=== PATIENT | female | born 1940 | race Caucasian/White ===

== ENCOUNTER → 2017-11-20 | Outpatient (CLI) | payer MEDICARE ==
[~2017-11-20] MED LIST: ASP81TEC PO; ASPI-999 PO; CA C1TAB26 PO; CALC-656 PO; CHOL10003 PO; CHOL100048 PO; CITA10TA70 PO; ESCI20TA PO; HYDR-91 PO; IBUP-1773 PO; IRON1TAB89 PO; LOSA1TAB23 PO; MULT-608 PO; MULT1TAB69 PO; NITR-33 PO; OMG1KC PO; PHEN200T16 PO; SMV20T PO; ZOLP5TAB PO
[2017-11-20 16:36] LABS: BASOPHILS # (AUTO) 0.1 10^3/uL (0.0-0.1); BASOPHILS % (AUTO) 1 % (0-10); EOSINOPHILS # (AUTO) 0.2 10^3/uL (0.0-0.3); EOSINOPHILS % (AUTO) 3 % (0-10); HEMATOCRIT 39 % (35-52); HEMOGLOBIN 13.3 G/DL (11.5-16.0); LYMPHOCYTES % (AUTO) 32 % (12-44); MEAN CORPUSCULAR HEMOGLOBIN 30 PG (25-34); MEAN CORPUSCULAR HGB CONC 35 G/DL (32-36); MEAN CORPUSCULAR VOLUME 87 FL (80-99); MONOCYTES # (AUTO) 0.8 X 10^3 (0.0-1.0); MONOCYTES % (AUTO) 12 % (0-12); NEUTROPHILS # (AUTO) 3.3 X 10^3 (1.8-7.8); NEUTROPHILS % (AUTO) 52 % (42-75); PLATELET COUNT 259 10^3/uL (130-400); RED BLOOD COUNT 4.42 10^6/uL (4.35-5.85); RED CELL DISTRIBUTION WIDTH 12.8 % (10.0-14.5); WHITE BLOOD COUNT 6.3 10^3/uL (4.3-11.0)
[2017-11-20 16:50] LABS: ALBUMIN 4.4 GM/DL (3.2-4.5); BILIRUBIN,TOTAL 0.5 MG/DL (0.1-1.0); CALCIUM 9.7 MG/DL (8.5-10.1); CREATININE SERUM 1.05 MG/DL (0.60-1.30); POTASSIUM 3.7 MMOL/L (3.6-5.0); TOTAL PROTEIN 6.9 GM/DL (6.4-8.2)
== END ==
LOC: LABNPT 16:28
PROVIDERS: ATTEND Obstetrics & Gynecology Gynecologic Oncology
DX: Z01.812 Encounter for preprocedural laboratory examination (principal); C54.1 Malignant neoplasm of endometrium; R10.2 Pelvic and perineal pain
CPT/HCPCS: 80053; 85025; 86304

== ENCOUNTER → 2018-11-28 | Outpatient (CLI) | payer MEDICARE ==
--- NOTE | 2018-11-28 17:35 | Diagnostic Imaging Report ---
INDICATION: Bilateral knee pain. TIME OF EXAM: 2:46 p.m. Multiple views of bilateral knees were obtained. FINDINGS: Left knee demonstrates postop changes of total knee arthroplasty. Prosthetic elements appear to be in good position without fracture or loosening. Right knee demonstrates severe medial compartmental degenerative change with joint space narrowing and marginal spurring. No acute fracture, dislocation, or effusion is seen. IMPRESSION: Satisfactory postop changes on the left. There are severe medial compartmental degenerative changes on the right. Dictated by: Dictated on workstation # [id number]
== END ==
LOC: RAD FS 14:38
PROVIDERS: ATTEND Nurse Practitioner
DX: M17.11 Unilateral primary osteoarthritis, right knee (principal); M25.562 Pain in left knee; Z96.652 Presence of left artificial knee joint

== ENCOUNTER → 2018-12-07 | Outpatient (CLI) | payer MEDICARE ==
--- NOTE | 2018-12-07 19:13 | Diagnostic Imaging Report ---
PROCEDURE: CT cervical spine without contrast. TECHNIQUE: Multiple contiguous axial images were obtained through the cervical spine without the use of intravenous contrast. Sagittal and coronal reformations were then performed. Auto Exposure Controls were utilized during the CT exam to meet ALARA standards for radiation dose reduction. DATE: December 07, 2018. INDICATION: 78-year-old female, cervical radiculopathy extending to the left shoulder and arm. History of fall two months ago. COMPARISON: None available. FINDINGS: There is straightening of the normal cervical lordosis. There is no identified facet joint subluxation or dislocation. There are multilevel advanced facet degenerative changes of the cervical spine. There is partial ankylosis across the bilateral C2-C3 facet articulations. There is no asymmetric widening of the cervical disc spaces. There is no prominent prevertebral soft tissue swelling. There is mild arthritis at the C1-C2 articulation. There are multilevel disc degenerative changes of the cervical spine. Disc height loss is most notable at C6-C7 with severe disc height loss at this level. There is a posterior disc osteophyte complex. There is also a posterior disc osteophyte complex at C4-C5 and C5-C6. CT is limited for assessment of disc pathology as well as additional non-bony causes of pathology within the spinal canal. There is no identified acute fracture of the cervical spine. The visualized portions of the lung apices are clear. There are atherosclerotic calcifications. There is heterogeneous attenuation of the thyroid with bilateral thyroid nodules measuring up to approximately 2.7 cm in size on the right and 2.5 cm on the left. Dedicated thyroid ultrasound is recommended for further assessment. IMPRESSION: 1. Multilevel advanced disc and facet degenerative changes of the cervical spine. CT is limited for assessment of disc pathology and non-bony causes of foraminal and spinal stenosis. 2. No identified acute fracture of the cervical spine. 3. Bilateral thyroid nodules. Dedicated thyroid ultrasound is recommended for further assessment. Dictated by: Dictated on workstation # [id number]
== END ==
LOC: RAD 14:23
PROVIDERS: ATTEND Nurse Practitioner Family
DX: Z01.818 Encounter for other preprocedural examination (principal); Z01.89 Encounter for other specified special examinations; M47.22 Other spondylosis with radiculopathy, cervical region; E04.2 Nontoxic multinodular goiter; K63.5 Polyp of colon; M19.91 Primary osteoarthritis, unspecified site; C55 Malignant neoplasm of uterus, part unspecified; G47.00 Insomnia, unspecified; Z91.81 History of falling
CPT/HCPCS: 72125

== ENCOUNTER → 2022-02-11 | Outpatient (CLI) | payer MEDICARE ==
[~2022-02-11] MED LIST changes: +MULT-567 PO; -MULT1TAB69 PO
--- NOTE | 2022-02-11 15:46 | Diagnostic Imaging Report ---
INDICATION: Right shoulder pain with adhesions and capsulitis. FINDINGS: 3 views. There is [id number] appearance of the glenohumeral joint. There is a sclerotic appearance to the humeral head and glenoid. Subcortical cystic changes. There is considerable hypertrophic bony changes along the inferior aspect of the humeral head. No definite cortical fractures demonstrated. AC joints in good alignment with rather large osteophyte extending superiorly. 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 Dictated by: Dictated on workstation # [id number]
== END ==
LOC: RAD FS 11:31
PROVIDERS: ATTEND Family Medicine
DX: M19.011 Primary osteoarthritis, right shoulder (principal)
CPT/HCPCS: 73030

== ENCOUNTER 2022-03-06 17:19 | Emergency (ER) | payer MEDICARE ==
[~2022-03-06] VITALS: Ht 157 cm; Wt 62.0 kg
--- NOTE | 2022-03-06 17:42 | ED Head Injury ---
General Chief Complaint: Head/Cervical Problems Stated Complaint: FELL,HIT HEAD Nursing Triage Note: PT REPORTS SHE SLIPPED AND FELL BACKWARDS IN THE SHOWER YESTERDAY AND HIT THE BACK OF HER HEAD. NO LOC. THIS AFTERNOON SHE STARTED FEELING DIZZY. Source: patient, family Exam Limitations: no limitations History of Present Illness Date Seen by Provider: Mar 06, 2022 Time Seen by Provider: 17:22 Initial Comments 82-year-old male with past medical history of hypertension coming in after she slipped in the shower yesterday and at the back of her head. Did not pass out, remembers all of the events. Was able to get up on the side of the shower, but needed help afterwards. Has been unsteady on her feet today and feels more dizzy. No real headache, vision changes, weakness, numbness, chest pain, shortness of breath, abdominal pain, nausea, vomiting, diarrhea, or any other concerns. She does not take any blood thinners. Allergies and Home Medications Allergies Coded Allergies: Sulfa (Sulfonamide Antibiotics) (Unverified Allergy, RASH, 08/12/10) Patient Home Medication List Home Medication List Reviewed: Yes Aspirin (Aspirin) 81 Mg Tab.chew, 81 MG PO DAILY, (Reported) Entered as Reported by: HARPREET BRUCE on 10/04/17 1116 Cholecalciferol (Vitamin D3) (Vitamin D) 1,000 Unit Capsule, 1,000 UNIT PO BID, (Reported) Entered as Reported by: HARPREET BRUCE on 10/04/17 111 Escitalopram Oxalate (Lexapro) 20 Mg Tablet, 20 MG PO HS, (Reported) Entered as Reported by: HARPREET BRUCE on 10/04/17 1116 Ibuprofen (Ibuprofen) 600 Mg Tablet, 600 MG PO Q6H Prescribed by: GERALDINE DIAL on 10/07/17 1022 Iron,Carbonyl/Ascorbic Acid (Iron 100-Vitamin C Tablet) 1 Each Tablet, 1 EACH PO DAILY, (Reported) Entered as Reported by: HARPREET BRUCE on 10/04/17 111 Losartan/Hydrochlorothiazide (Losartan-Hctz 100-25 mg Tab) 1 Each Tablet, 0.5 TAB PO DAILY, (Reported) Entered as Reported by: HARPREET BRUCE on 10/04/17 111 Multivitamin (Multivitamins) 1 Each Tablet, 1 EACH PO DAILY PRN, (Reported) Entered as Reported by: HARPREET BRUCE on 10/04/17 111 [place] 3 Polyunsat Fatty Acids (Fish Oil 1,000 mg Capsule) 1,000 Mg Cap, 1,000 MG PO BID, (Reported) Entered as Reported by: HARPREET BRUCE on 10/04/17 111 Zolpidem Tartrate (Ambien) 5 Mg Tablet, 5 MG PO HS, (Reported) Entered as Reported by: HARPREET BRUCE on 10/04/17 111 Review of Systems Review of Systems Constitutional: No fever Eyes: No Symptoms Reported Ears, Nose, Mouth, Throat: no symptoms reported Respiratory: no symptoms reported Cardiovascular: no symptoms reported Gastrointestinal: no symptoms reported Genitourinary: no symptoms reported Musculoskeletal: no symptoms reported Skin: no symptoms reported Psychiatric/Neurological: See HPI Endocrine: No Symptoms Reported Hematologic/Lymphatic: No Symptoms Reported All Other Systems Reviewed Negative Unless Noted: Yes Past Lrfgqbz-Ggzmyu-Ffjpwi Hx Patient Social History Tobacco Use?: No Use of E-Cig and/or Vaping dev: No Substance use?: No Alcohol Use?: No Pt feels they are or have been: No Immunizations Up To Date First/Initial COVID19 Vaccinat: 2020 Second COVID19 Vaccination Jayme: 2020 COVID19 Vaccine Recycling Assistant: CHRISTIANO Seasonal Allergies Seasonal Allergies: No Past Medical History Surgery/Hospitalization HX: HYSTERECTOMY OVARIAN CA KNEE Surgeries: Yes Hypertension Neuropathy Reproductive Disorders: No Sexually Transmitted Disease: No Kidney Stones Chronic Constipation, Chronic Diarrhea, Polyps Arthritis What Type of Treatment Did You: Surgical Intervention Physical Exam Vital Signs Vital Signs - First Documented 03/06/22 17:25 Temp 36.2 Pulse 71 Resp 16 B/P (MAP) 147/64 (91) Pulse Ox 95 O2 Delivery Room Air Capillary Refill : Less Than 3 Seconds Height, Weight, BMI Height: 5'1.00" Weight: 147lbs. 0.0oz. 66.994815yb; 25.00 BMI Method: General Appearance: WD/WN, no apparent distress HEENT: PERRL/EOMI, normal ENT inspection, TMs normal, pharynx normal Neck: non-tender, full range of motion, supple, normal inspection Cardiovascular: regular rate, rhythm, no edema, no murmur Respiratory: chest non-tender, lungs clear, normal breath sounds, no respiratory distress, no accessory muscle use Gastrointestinal: normal bowel sounds, non tender, soft; No distended, No guarding, No rebound Back: normal inspection, no CVA tenderness, no vertebral tenderness Extremities: normal range of motion, non-tender, normal inspection, no pedal edema, no calf tenderness, normal capillary refill Psychiatric: alert, oriented x 3 Crainal Nerves: normal hearing, normal speech, PERRL Coordination/Gait: normal finger to nose, normal gait Motor/Sensory: no motor deficit, no sensory deficit, no pronator drift Skin: normal color, warm/dry Lymphatic: no adenopathy Wrens Coma Score Best Eye Response: (4) Open Spontaneously Best Verbal Response: (5) Oriented Best Motor Response: (6) Obeys Commands Progress/Results/Core Measures Results/Orders Lab Results Laboratory Tests Test 03/06/22 18:05 Range/Units Urine Color YELLOW Urine Clarity SLIGHTLY CLOUDY Urine pH 7.0 5-9 Urine Specific Greer 1.020 1.016-1.022 Urine Protein NEGATIVE NEGATIVE Urine Glucose (UA) NEGATIVE NEGATIVE Urine Ketones NEGATIVE NEGATIVE Urine Nitrite NEGATIVE NEGATIVE Urine Bilirubin NEGATIVE NEGATIVE Urine Urobilinogen 0.2 < = 1.0 MG/DL Urine Leukocyte Esterase 1+ H NEGATIVE Urine RBC (Auto) NEGATIVE NEGATIVE Urine RBC NONE /HPF Urine WBC >100 H /HPF Urine Squamous Epithelial Cells 2-5 /HPF Urine Crystals NONE /LPF Urine Bacteria MODERATE H /HPF Urine Casts PRESENT /LPF Urine Hyaline Casts 2-5 H /LPF Urine Mucus NEGATIVE /LPF Urine Culture Indicated YES My Orders Orders - KATARINA OVALLES MD Ct Head/Cervical Spine Wo (03/06/22 17:39) Ua Culture If Indicated (03/06/22 17:53) Urine Culture (03/06/22 18:05) Vital Signs/I&O 03/06/22 03/06/22 17:25 18:19 Temp 36.2 36.2 Pulse 71 62 Resp 16 16 B/P (MAP) 147/64 (91) 116/58 Pulse Ox 95 95 O2 Delivery Room Air Room Air Blood Pressure Mean: 91 Progress Progress Note : Progress Note 82-year-old female with above history coming in after mechanical fall slipping in the shower and hitting the back of her head. ABCs were intact and vitals were stable on presentation with a GCS of 15. Physical exam reassuring including a comprehensive neuro exam which is normal. CT head and cervical spine ordered and show no acute abnormalities. She did have a multinodular goiter which I discussed with the patient and is known and followed by her PCP. She does have some burning with urination and her UA was consistent with infection. Given an IM shot of ceftriaxone and will send her prescription home. I believe she stable for discharge with outpatient follow-up. She was sent home with strict return precautions Diagnostic Imaging Diagonstic Imaging: CT (head) Comments NAME: ALTHEA DUBON [facility] REC#: [id number] PT STATUS: REG ER : 1940 PHYSICIAN: KATARINA OVALLES MD ADMIT DATE: 03/06/22/ER FS Draft Date of Exam:03/06/22 CT HEAD/CERVICAL SPINE WO PROCEDURE: CT head and CT cervical spine without contrast. TECHNIQUE: Multiple contiguous axial images were obtained through the brain and cervical spine without the use of intravenous contrast. Sagittal and coronal reformations through the cervical spine were then performed. Auto Exposure Controls were utilized during the CT exam to meet ALARA standards for radiation dose reduction. INDICATION: Fall. Head and neck pain. Dizziness. COMPARISON: 12/07/2018. FINDINGS: CT HEAD: No large acute territorial ischemia, mass or hemorrhage. No midline shift or mass effect. Decreased attenuation is seen in the periventricular and subcortical white matter. The ventricles and cortical sulci are prominent. The basilar cisterns are patent and unremarkable. The calvarium is intact. Retained secretions are seen in the bilateral sphenoid sinuses. The mastoid air cells are clear. CT CERVICAL SPINE: No acute fracture or dislocation is seen in the cervical spine. No focal osseous lesion. Vertebral body heights are well-maintained. The craniocervical junction is well-maintained. Moderate degenerative changes are seen in the cervical spine with disc osteophyte complexes and uncovertebral arthropathy. Enlarged nodular thyroid is noted. The included lung apices are clear. IMPRESSION: 1. No hemorrhage or focal intra-axial mass. No CT evidence of large acute territorial ischemia. 2. No acute fracture or dislocation in the cervical spine. 3. Multinodular goiter. Recommend correlation with patient history and TSH levels. Thyroid ultrasound may be considered on an outpatient basis to further evaluate. Dictated on workstation # [id number] Dict: 03/06/22 1805 Trans: 03/06/221812 Frances [id number] Interpreted by: PHOEBE POPE DO Electronically signed by: Departure Impression Primary Impression: Concussion without loss of consciousness Qualified Codes: S06.0X0A - Concussion without loss of consciousness, initial encounter Additional Impression: Cystitis Disposition: HOME, SELF-CARE Condition: Stable Departure-Patient Inst. Decision time for Depature: 18:28 Referrals: JOCELIN PILLAI MD (PCP/Family) Primary Care Physician Patient Instructions: Concussion, Adult ED, Urinary Tract Infection, Adult ED Add. Discharge Instructions: You do have a concussion which likely will take days to weeks to improve. Symptoms can vary and can include things like a headache, difficulty focusing, dizziness, etc. Take Tylenol as needed for any type of pain. You also have an infection which likely will start improving in the next couple of days. Please follow-up with your regular doctor if things are not improving. Scripts Nitrofurantoin Monohyd/M-Cryst (Macrobid 100 mg Capsule) 100 Mg Capsule 1 TAB PO BID for 5 Days, #10 CAP Prov: KATARINA OVALLES MD 03/06/22 KATARINA OVALLES MD Mar 06, 2022 17:42
[2022-03-06 18:06] LABS: BILIRUBIN,URINE NEGATIVE (NEGATIVE); COLOR,URINE YELLOW; GLUCOSE, URINE (UA) NEGATIVE (NEGATIVE); KETONES,URINE NEGATIVE (NEGATIVE); LEUKOCYTE ESTERASE ,URINE 1+ (NEGATIVE); NITRITE,URINE NEGATIVE (NEGATIVE); PROTEIN,URINE NEGATIVE (NEGATIVE)
[2022-03-06 18:11] LABS: BACTERIA,URINE MODERATE /HPF; CLARITY,URINE SLIGHTLY CLOUDY; WBC,URINE >100 /HPF
--- NOTE | 2022-03-06 18:15 | Diagnostic Imaging Report ---
PROCEDURE: CT head and CT cervical spine without contrast. TECHNIQUE: Multiple contiguous axial images were obtained through the brain and cervical spine without the use of intravenous contrast. Sagittal and coronal reformations through the cervical spine were then performed. Auto Exposure Controls were utilized during the CT exam to meet ALARA standards for radiation dose reduction. INDICATION: Fall. Head and neck pain. Dizziness. COMPARISON: 12/07/2018. FINDINGS: CT HEAD: No large acute territorial ischemia, mass or hemorrhage. No midline shift or mass effect. Decreased attenuation is seen in the periventricular and subcortical white matter. The ventricles and cortical sulci are prominent. The basilar cisterns are patent and unremarkable. The calvarium is intact. Retained secretions are seen in the bilateral sphenoid sinuses. The mastoid air cells are clear. CT CERVICAL SPINE: No acute fracture or dislocation is seen in the cervical spine. No focal osseous lesion. Vertebral body heights are well-maintained. The craniocervical junction is well-maintained. Moderate degenerative changes are seen in the cervical spine with disc osteophyte complexes and uncovertebral arthropathy. Enlarged nodular thyroid is noted. The included lung apices are clear. IMPRESSION: 1. No hemorrhage or focal intra-axial mass. No CT evidence of large acute territorial ischemia. 2. No acute fracture or dislocation in the cervical spine. 3. Multinodular goiter. Recommend correlation with patient history and TSH levels. Thyroid ultrasound may be considered on an outpatient basis to further evaluate. Dictated by: Dictated on workstation # [id number]
[2022-03-06 18:19] VITALS: BP 116/58
[2022-03-06] MEDS ORDERED: NITR-65 PO (18:29)
[2022-03-06] MEDS ORDERED: cefTRIAXone 1,000 MG VIAL IM ONE (18:30)
[2022-03-06] MEDS ORDERED: LIDOCAINE 1% INJ 20 ML VIAL INJ ONE (18:30)
== END 2022-03-06 18:30 | disposition home or self-care (01) ==
LOC: EDUNIT# 17:19 → ER FS 17:20
DX: S06.0X0A Concussion without loss of consciousness, initial encounter (principal); N30.90 Cystitis, unspecified without hematuria; Z88.2 Allergy status to sulfonamides; W18.2XXA Fall in (into) shower or empty bathtub, initial encounter
CPT/HCPCS: 70450; 72125; 81000; 87077; 87088; 87186

== ENCOUNTER → 2022-05-26 | Outpatient (CLI) | payer MEDICARE ==
[~2022-05-26] MED LIST changes: +NITR-65 PO
--- NOTE | 2022-05-26 10:15 | Diagnostic Imaging Report ---
EXAMINATION: MRI lumbar spine without contrast. TECHNIQUE: Multiplanar, multisequence MRI of the lumbar spine was performed without contrast. HISTORY: Back pain. COMPARISON: None available. FINDINGS: Mild anterolisthesis of L4 on L5. Otherwise the lumbar lordosis is preserved. No acute fracture. Mild multilevel degenerative disc desiccation and disc height loss. No marrow replacing process to suggest malignancy. The conus terminates at a normal level. No abnormal signal is seen within the visualized distal spinal cord. No clumping of intrathecal nerve roots. Included views of the abdomen demonstrates a partially imaged large right renal cysts. T12-L1: No disc bulge. No facet arthropathy. No significant spinal stenosis or neural foraminal narrowing. L1-L2: Disc bulge. Mild facet arthropathy. Mild spinal canal narrowing. No neural foraminal narrowing. L2-L3: Disc bulge. Mild facet arthropathy. Mild spinal stenosis. No neural foraminal narrowing. L3-L4: Disc bulge. Mild facet arthropathy. Mild spinal and lateral recess stenosis. No neural foraminal narrowing. L4-L5: Asymmetric right foraminal disc bulge. Severe facet arthropathy. Ligamentum flavum thickening. Severe spinal stenosis. Mild right foraminal narrowing. No left neural foraminal narrowing. L5-S1: Disc bulge. Severe facet arthropathy. Mild spinal stenosis. Mild bilateral neural foraminal narrowing. IMPRESSION: Multilevel degenerative changes of the lumbar spine described level by level above, severe at L4-L5. L4-L5: Asymmetric right foraminal disc bulge. Severe facet arthropathy. Ligamentum flavum thickening. Severe spinal canal stenosis. Mild right foraminal narrowing. No left neural foraminal narrowing. Dictated by: Dictated on workstation # [id number]
== END ==
LOC: RAD 08:12
PROVIDERS: ATTEND Family Medicine
DX: M47.26 Other spondylosis with radiculopathy, lumbar region (principal); M51.16 Intervertebral disc disorders with radiculopathy, lumbar region; M48.061 Spinal stenosis, lumbar region without neurogenic claudication; M24.28 Disorder of ligament, vertebrae; M51.17 Intervertebral disc disorders with radiculopathy, lumbosacral region; M47.27 Other spondylosis with radiculopathy, lumbosacral region; M48.07 Spinal stenosis, lumbosacral region; R29.6 Repeated falls; R20.2 Paresthesia of skin
CPT/HCPCS: 72148

== ENCOUNTER 2022-10-10 22:24 | Emergency (ER) | payer MEDICARE ==
[~2022-10-10] VITALS: Ht 154.9 cm; Wt 59.4 kg
[2022-10-10] MEDS ORDERED: LABETALOL HCL 20 MG/4 ML VIAL IV PRN (22:45)
[2022-10-10 22:56] LABS: BASOPHILS # (AUTO) 0.1 10^3/uL (0.0-0.1); BASOPHILS % (AUTO) 1 % (0-10); EOSINOPHILS # (AUTO) 0.2 10^3/uL (0.0-0.3); EOSINOPHILS % (AUTO) 3 % (0-10); HEMATOCRIT 42 % (35-52); HEMOGLOBIN 14.2 g/dL (11.5-16.0); LYMPHOCYTES # (AUTO) 3.6 10^3/uL (1.0-4.0); LYMPHOCYTES % (AUTO) 46 % (12-44); MEAN CORPUSCULAR HEMOGLOBIN 30 pg (25-34); MEAN CORPUSCULAR HGB CONC 34 g/dL (32-36); MEAN CORPUSCULAR VOLUME 88 fL (80-99); MEAN PLATELET VOLUME 10.6 fL (9.0-12.2); MONOCYTES # (AUTO) 0.7 10^3/uL (0.0-1.0); MONOCYTES % (AUTO) 9 % (0-12); NEUTROPHILS # (AUTO) 3.2 10^3/uL (1.8-7.8); NEUTROPHILS % (AUTO) 41 % (42-75); PLATELET COUNT 246 10^3/uL (130-400); WHITE BLOOD COUNT 7.7 10^3/uL (4.3-11.0)
[2022-10-10] MEDS ORDERED: ONDANSETRON 4 MG/2 ML (SDV) Z0FRAN IVP ONE (23:00)
--- NOTE | 2022-10-10 23:03 | ED Neurological Problem ---
General Chief Complaint: Neuro-Stroke Like Symptoms Stated Complaint: CONDUSION|NAUSEA Nursing Triage Note: Patient states that she started having a headache approximately 1 hour ago. Patient reports that this headache is in her right eye/eyebrow. Patient is also complaining of nausea, shakiness and she feels like she has been intermittently confused. Someone at the residence took the patients blood pressure and they got 201/96. Patient does have a history of HTN but she was taken off her meds 2 weeks ago by her physician because she was having issues with hypotension. Source: patient, family Exam Limitations: no limitations History of Present Illness Date Seen by Provider: Oct 10, 2022 Time Seen by Provider: 22:28 Initial Comments 82-year-old female with past medical history most notable for hypertension coming in due to headache and confusion. Started roughly at 9 PM. She had been to dinner with family prior to that. She called her sister, and stated that she does not feel well. She was on losartan with hydrochlorothiazide. She recently was taken off of that a couple weeks ago due to low blood pressure at home. When she took her blood pressure tonight, it was 201/96. She states the pain is in her right eyebrow. She denies any weakness, numbness, chest pain, shortness of breath, abdominal pain, vomiting, diarrhea, fever, chills, or any other concerns. She endorses having a minor fall roughly 3 days ago. Allergies and Home Medications Allergies Coded Allergies: Sulfa (Sulfonamide Antibiotics) (Unverified Allergy, Unknown, RASH, 05/26/22) Patient Home Medication List Home Medication List Reviewed: Yes Aspirin (Aspirin) 81 Mg Tab.chew, 81 MG PO DAILY, (Reported) Entered as Reported by: HARPREET BRUCE on 10/04/17 111 Cholecalciferol (Vitamin D3) (Vitamin D) 1,000 Unit Capsule, 1,000 UNIT PO BID, (Reported) Entered as Reported by: HARPREET BRUCE on 10/04/17 1116 Escitalopram Oxalate (Lexapro) 20 Mg Tablet, 20 MG PO HS, (Reported) Entered as Reported by: HARPREET BRUCE on 10/04/17 1116 Ibuprofen (Ibuprofen) 600 Mg Tablet, 600 MG PO Q6H Prescribed by: GERALDINE DIAL on 10/07/17 1022 Iron,Carbonyl/Ascorbic Acid (Iron 100-Vitamin C Tablet) 1 Each Tablet, 1 EACH PO DAILY, (Reported) Entered as Reported by: HARPREET BRUCE on 10/04/17 111 Losartan/Hydrochlorothiazide (Losartan-Hctz 100-25 mg Tab) 1 Each Tablet, 0.5 TAB PO DAILY, (Reported) Entered as Reported by: HARPREET BRUCE on 10/04/17 111 Multivitamin (Multivitamins) 1 Each Tablet, 1 EACH PO DAILY PRN, (Reported) Entered as Reported by: HARPREET BRUCE on 10/04/17 111 Nitrofurantoin Monohyd/M-Cryst (Macrobid 100 mg Capsule) 100 Mg Capsule, 1 TAB PO BID Prescribed by: KATARINA OVALLES on 03/06/22 182 [place] 3 Polyunsat Fatty Acids (Fish Oil 1,000 mg Capsule) 1,000 Mg Cap, 1,000 MG PO BID, (Reported) Entered as Reported by: HARPREET BRUCE on 10/04/17 111 Zolpidem Tartrate (Ambien) 5 Mg Tablet, 5 MG PO HS, (Reported) Entered as Reported by: HARPREET BRUCE on 10/04/17 111 Review of Systems Review of Systems Constitutional: no symptoms reported Eyes: No Symptoms Reported Respiratory: no symptoms reported Cardiovascular: no symptoms reported Gastrointestinal: no symptoms reported Genitourinary: no symptoms reported Musculoskeletal: no symptoms reported Skin: no symptoms reported Psychiatric/Neurological: See HPI Endocrine: No Symptoms Reported Past Twrfhjf-Auswxv-Njfroz Hx Patient Social History Tobacco Use?: No Substance use?: No Alcohol Use?: No Pt feels they are or have been: No Immunizations Up To Date First/Initial COVID19 Vaccinat: 2020 Second COVID19 Vaccination Jayme: 2020 Seasonal Allergies Seasonal Allergies: No Past Medical History Surgery/Hospitalization HX: HTN, [place] Palsy Surgeries: Yes Hypertension Neuropathy Reproductive Disorders: No Sexually Transmitted Disease: No Kidney Stones Chronic Constipation, Chronic Diarrhea, Polyps Arthritis What Type of Treatment Did You: Surgical Intervention Physical Exam Vital Signs Vital Signs - First Documented 10/10/22 22:27 Temp 36.9 Pulse 73 Resp 16 B/P (MAP) 162/113 (129) Pulse Ox 99 O2 Delivery Room Air Capillary Refill : Less Than 3 Seconds Height, Weight, BMI Height: 5'1.00" Weight: 147lbs. 0.0oz. [id number]; 24.00 BMI Method: General Appearance: WD/WN, no apparent distress HEENT: PERRL/EOMI, normal ENT inspection, pharynx normal, other (no palpable or painful temporal artery) Neck: non-tender, full range of motion, supple, normal inspection Respiratory: chest non-tender, lungs clear, normal breath sounds, no respiratory distress, no accessory muscle use Cardiovascular: regular rate, rhythm Gastrointestinal: normal bowel sounds, non tender, soft; No distended, No guarding, No rebound Back: normal inspection, no CVA tenderness, no vertebral tenderness Extremities: normal range of motion, non-tender, normal inspection, no pedal edema, no calf tenderness, normal capillary refill Neurologic/Psychiatric: alert, normal mood/affect, oriented x 3, facial droop (left asymmetry with smile), other (normal visual acuity, homonymous hemianopsia on the left) Crainal Nerves: normal hearing, normal speech, PERRL Coordination/Gait: normal finger to nose Motor/Sensory: no motor deficit, no pronator drift, sensory deficit (left arm) Skin: normal color, warm/dry Stroke Onset of Symptoms Date of Onset of Symptoms: Oct 10, 2022 Time of Symptom Onset: 20:00 Onset of Symptoms: Yes NIH Stroke Scale Assessment Select: Initial Level of Consciousness: 0=Alert (0), Level of Consciousness- Questions: 0=Answers both month/age (0), LOC Commands: 0=Performs both tasks (0), Gaze: Normal (0), Visual [place]: 2=Complete hemianopia (2), Facial Movement (Facial Paresis): 1=Minor paralysis (1), Motor Function-Arms Right: 0=No drift (0), Motor Function-Arms Left: 0=No drift (0), Motor Function-Legs Right: 0=No drift (0), Motor Function-Legs Left: 0=No drift (0), Limb Ataxia: 0=Absent (0), Sensory: 1=Mild to Moderate loss (1), Best Language: 0=No aphasia (0), Dysarthria: 0=Normal (0), Extinction & Inattention: 0=No abnormality (0), Total: 4 Stroke Thrombolytic Exclusion Age 18 or Over: Yes Acute intenal hemorrhage: No History of CVA: No Uncontrolled Coagulation Defec: No Intracranial Hemorrhage: No Severe Hypertension: Yes GI or Bleed: No Subarachnoid Hemorrhage: No Intracranial Neoplasm/Aneurysm: No Oral Anticoagulants: No Surgery or Trauma: No Puncture of Non-Compressible V: No Recent CPR: No Diabetic Hemorrhagic Retinopat: No Organ Biopsy: No Recent Obstetric Delivery: No Glucose: No Significant Hepatic Dysfunctio: No NIH Stoke Scale >22: No Bacterial Endocarditis: No Pericarditis: No Improving Symptoms: No Platelets: No TPA Contraindication: Yes Progress/Results/Core Measures Results/Orders Lab Results Laboratory Tests Test 10/10/22 22:30 10/10/22 23:14 Range/Units White Blood Count 7.7 4.3-11.0 10^3/uL Red Blood Count 4.74 3.80-5.11 10^6/uL Hemoglobin 14.2 11.5-16.0 g/dL Hematocrit 42 35-52 % Mean Corpuscular Volume 88 80-99 fL Mean Corpuscular Hemoglobin 30 25-34 pg Mean Corpuscular Hemoglobin Concent 34 32-36 g/dL Red Cell Distribution Width 12.3 10.0-14.5 % Platelet Count 246 130-400 10^3/uL Mean Platelet Volume 10.6 9.0-12.2 fL Immature Granulocyte % (Auto) 0 % Neutrophils (%) (Auto) 41 L 42-75 % Lymphocytes (%) (Auto) 46 H 12-44 % Monocytes (%) (Auto) 9 0-12 % Eosinophils (%) (Auto) 3 0-10 % Basophils (%) (Auto) 1 0-10 % Neutrophils # (Auto) 3.2 1.8-7.8 10^3/uL Lymphocytes # (Auto) 3.6 1.0-4.0 10^3/uL Monocytes # (Auto) 0.7 0.0-1.0 10^3/uL Eosinophils # (Auto) 0.2 0.0-0.3 10^3/uL Basophils # (Auto) 0.1 0.0-0.1 10^3/uL Immature Granulocyte # (Auto) 0.0 0.0-0.1 10^3/uL Erythrocyte Sedimentation Rate 6 0-30 MM/HR Prothrombin Time 12.7 12.2-14.7 SEC INR Comment 0.9 0.8-1.4 Activated Partial Thromboplast Time 30 24-35 SEC D-Dimer 0.69 H 0.00-0.49 UG/ML Sodium Level 143 135-145 MMOL/L Potassium Level 3.3 L 3.6-5.0 MMOL/L Chloride Level 103 98-107 MMOL/L Carbon Dioxide Level 22 21-32 MMOL/L Anion Gap 18 H 5-14 MMOL/L Blood Urea Nitrogen 14 7-18 MG/DL Creatinine 0.97 0.60-1.30 MG/DL Estimat Glomerular Filtration Rate 58 BUN/Creatinine Ratio 14 Glucose Level 99 70-105 MG/DL Calcium Level 10.1 8.5-10.1 MG/DL Corrected Calcium 9.8 8.5-10.1 MG/DL Total Bilirubin 0.5 0.1-1.0 MG/DL Aspartate Amino Transf (AST/SGOT) 14 5-34 U/L Alanine Aminotransferase (ALT/SGPT) 7 0-55 U/L Alkaline Phosphatase 78 40-136 U/L Troponin I < 0.30 <0.30 NG/ML Total Protein 7.3 6.4-8.2 GM/DL Albumin 4.4 3.2-4.5 GM/DL Glucometer 108 70-110 MG/DL My Orders Orders - KATARINA OVALLES MD Cbc With Automated Diff (10/10/22 22:42) Protime With Inr (10/10/22 22:42) Partial Thromboplastin Time (10/10/22 22:42) Comprehensive Metabolic Panel (10/10/22 22:42) Fibrin Degradation Products (10/10/22 22:42) Troponin I Fs (10/10/22 22:42) Ua Culture If Indicated (10/10/22 22:42) Chest 1 View Ap/Pa Only (10/10/22 22:42) Ekg Tracing (10/10/22 22:42) Accucheck Stat ONCE (10/10/22 22:42) Ed Iv/Invasive Line Start (10/10/22 22:42) Vital Signs Stroke Patient Q15M (10/10/22 22:42) Ct Head Wo-R/O Stroke (10/10/22 22:42) O2 (10/10/22 22:42) Intake & Output 06,14,22 (10/10/22 22:42) Labetalol Injection (Normodyne Injection (10/10/22 22:45) Monitor-Rhythm Ecg Trace Only (10/10/22 22:42) Dysphagia Screening Tool Q10MX1 (10/10/22 22:42) Erythrocyte Sedimentation Rate (10/10/22 22:42) Ondansetron Injection (Zofran Injectio (10/10/22 23:00) Tetracaine 0.5% Ophth Crissy Sdv (Tetracai (10/10/22 23:15) Fluorescein Strips (Dsqwn-I-Pejvbm) (10/10/22 23:15) Fentanyl Inj (Sublimaze Injection) (10/10/22 23:15) Ct Angio Head/Neck (10/10/22 23:27) Labetalol Injection (Normodyne Injection (10/10/22 23:45) Labetalol Injection (Normodyne Injection (10/10/22 23:33) Labetalol Injection (Normodyne Injection (10/10/22 23:45) Vital Signs Stroke Patient Q15M (10/10/22 23:39) Dysphagia Screening Tool Q10MX1 (10/10/22 23:39) Post Thrombolytic Adminstratio (10/10/22 23:39) Tenecteplase (Tnkase) (10/10/22 23:45) Post Thrombolytic Adminstratio (10/10/22 23:39) Iohexol Injection (Omnipaque 350 Mg/Ml 1 (10/10/22 23:45) Di Iv Start (Assessment) .IV start (10/10/22 23:40) Received Contrast (Hold Metformin- Contr (10/10/22 23:45) Ns (Ivpb) (Sodium Chloride 0.9% Ivpb Bag (10/10/22 23:45) Promethazine Injection (Phenergan Injec (10/11/22 00:00) Promethazine Injection (Phenergan Injec (10/10/22 23:50) Ns (Ivpb) (Sodium C... W/Nicardipine Iv (10/11/22 00:15) Nicardipine Iv (Pyxis Drip Kit (Cardene (10/11/22 00:20) Ns (Ivpb) (Sodium Chloride 0.9%) (10/11/22 00:20) Medications Given in ED Current Medications Medications Dose Ordered Sig/Carlie Route Start Time Stop Time Status Last Admin Dose Admin Fentanyl Citrate 50 mcg ONCE ONCE IVP 10/10/22 23:15 10/10/22 23:16 DC 10/10/22 23:15 50 MCG Fluorescein Sodium 1 mg ONCE ONCE OU 10/10/22 23:15 10/10/22 23:16 DC 10/10/22 23:15 1 MG Labetalol HCl 10 mg ONCE ONCE IV 10/10/22 23:45 10/10/22 23:37 DC 10/10/22 23:35 10 MG Labetalol HCl 10 mg ONCE PRN IV 10/10/22 22:45 10/10/22 23:18 10 MG Labetalol HCl 20 mg ONCE ONCE IV 10/10/22 23:45 10/10/22 23:46 DC 10/10/22 23:38 20 MG Ondansetron HCl 4 mg ONCE ONCE IVP 10/10/22 23:00 10/10/22 23:01 DC 10/10/22 22:59 4 MG Promethazine HCl 12.5 mg ONCE ONCE IVP 10/11/22 00:00 10/11/22 00:01 DC 10/10/22 23:52 12.5 MG Tenecteplase 14.85 mg ONCE ONCE IV 10/10/22 23:45 10/10/22 23:46 DC 10/10/22 23:57 14.85 MG Tetracaine HCl 4 ml ONCE ONCE OU 10/10/22 23:15 10/10/22 23:16 DC 10/10/22 23:15 4 ML Vital Signs/I&O 10/10/22 10/10/22 10/11/22 22:27 23:57 00:27 Temp 36.9 Pulse 73 69 Resp 16 B/P (MAP) 162/113 (129) 168/82 207/80 Pulse Ox 99 O2 Delivery Room Air Blood Pressure Mean: 129 Progress Progress Note : Progress Note 82-year-old female coming in due to right-sided headache and confusion. The patient was hypertensive, around 200 systolic on arrival. EKG ordered and interpreted by me showing no acute ischemic changes. An IV was placed and basic labs were obtained and a stroke alert was started. CT Noncon head on my interpretation with no acute bleed. It was read as nothing acute per the [facility] stat rad read. Family was with the patient until 8:30 PM, she was normal that entire time. She is quite certain that this started at 9 PM. 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 NIH score will be 4 including the facial droop getting one-point. I contacted and discussed the case with the stroke neurologist, Dr. De La Garza. We discussed the differential including acute ischemic stroke, PRES, giant cell arteritis, glaucoma, versus other abnormalities. ESR is 6, no temporal artery pain on exam, and no temporal artery hardness as well making Giant cell arteritis less likely. Will hold off on high dose steroids at this time. Stroke is much more likely given that both eyes are involved. She recommended going forward with tenecteplase. The patient was consented, and she is agreeable, however she did ask for her sister to sign for her. Given that the CT head was negative for acute bleed, and the only relative contraindication was her blood pressure, she did receive IV labetalol x2 with goal blood pressure less than 185/110. It did come down to a point where she was able to be treated. She was given the tenecteplase and then taken back to CT for CTA of the head and neck. [facility] did accept the patient for admission to the intensive care unit. We contacted the flight team to potentially find the patient, however given weather, they are unable to fly her at this time. She will be taken via ground transport. Just prior to leaving, her blood pressure did trend back up. A nicardipine drip was then started. Initial ECG Impression Date: Oct 10, 2022 Initial ECG Impression Time: 22:47 Initial ECG Rate: 78 Initial ECG Rhythm: Normal Sinus Comment Narrow QRS, normal axis, no significant ST changes or T wave abnormality Critical Care Note Critical Care Start Time: 22:28 Stop Time: 00:20 Total Time (minutes) 63 Progress The patient was having an acute ischemic stroke. She received tenecteplase. She was at high risk for complications due to this medication. All time billed for critical care was separate from procedures and was spent at the bedside with the patient reevaluating her as well as discussing the case with her family and other physicians. Departure Impression Primary Impression: Acute ischemic stroke Disposition: XFER SHT-TRM HOSP Condition: Stable Admissions Decision to Admit/Date: Oct 10, 2022 Time/Decision to Admit Time: 23:40 Transfer Transfer Reason: Exceeds level of care (needs stroke neurologist, may need thrombectomy) Time Spoke to Accepting Phy: 23:40 Transfer Progress Notes Accepted to [facility] via Dr. De La Garza to the neuro ICU Transfer Facility: [facility] Method of Transfer: EMS Departure-Patient Inst. Referrals: JOCELIN PILLAI MD (PCP/Family) Primary Care Physician KATARINA OVALLES MD Oct 10, 2022 23:03
[2022-10-10 23:12] LABS: INR 0.9 (0.8-1.4); PROTHROMBIN TIME PATIENT 12.7 SEC (12.2-14.7)
[2022-10-10] MEDS ORDERED: FLUORESCEIN (FLUOR-I-STRIPS) 1 MG STRP OU ONE (23:15)
[2022-10-10] MEDS ORDERED: TETRACAINE 0.5% OPHTH SOLN 4 ML BTL (SINGLE DOSE ONLY) OU ONE (23:15)
[2022-10-10] MEDS ORDERED: fentaNYL INJ 100 MCG/2 ML AMP IVP ONE (23:15)
[2022-10-10 23:18] LABS: ALANINE AMINOTRANSFERASE 7 U/L (0-55); ALBUMIN 4.4 GM/DL (3.2-4.5); ALKALINE PHOSPHATASE 78 U/L (40-136); BILIRUBIN,TOTAL 0.5 MG/DL (0.1-1.0); BUN/CREATININE RATIO 14; CALCIUM 10.1 MG/DL (8.5-10.1); CARBON DIOXIDE 22 MMOL/L (21-32); CREATININE SERUM 0.97 MG/DL (0.60-1.30); GFR ESTIMATED 58; GLUCOSE 99 MG/DL (70-105); TOTAL PROTEIN 7.3 GM/DL (6.4-8.2)
[2022-10-10 23:19] LABS: ERYTHROCYTE SEDIMENTATION RATE 6 MM/HR (0-30); FIBRIN DEGRADATION PRODUCTS 0.69 UG/ML (0.00-0.49)
[2022-10-10 23:24] LABS: CHLORIDE 103 MMOL/L (98-107); POTASSIUM 3.3 MMOL/L (3.6-5.0); SODIUM 143 MMOL/L (135-145)
[2022-10-10] MEDS ORDERED: LABETALOL HCL 20 MG/4 ML VIAL ONE (23:33)
[2022-10-10] MEDS ORDERED: TENECTEPLASE 50 MG VIAL IV ONE (23:45)
[2022-10-10] MEDS ORDERED: LABETALOL HCL 20 MG/4 ML VIAL IV ONE ×2 (23:45)
[2022-10-10] MEDS ORDERED: IOHEXOL 350 MG/ML 100 ML (OMNIPAQUE 350) VIAL IV ONE (23:45)
[2022-10-10] MEDS ORDERED: NS 100 ML (IVPB) BAG IV ONE (23:45)
[2022-10-10] MEDS ORDERED: HOLD METFORMIN - RECEIVED CONTRAST 20 ML VIAL IV SCH (23:45)
[2022-10-10] MEDS ORDERED: PROMETHAZINE INJ 25 MG/ML (PHENERGAN) AMP ONE (23:50)
[2022-10-11] MEDS ORDERED: PROMETHAZINE INJ 25 MG/ML (PHENERGAN) AMP IVP ONE
[2022-10-11] MEDS ORDERED: niCARdipine IV 50 MG in NS (IVPB) 230 ML IV STA (00:15)
[2022-10-11] MEDS ORDERED: NS (IVPB) 250 ML ONE (00:20)
[2022-10-11] MEDS ORDERED: niCARdipine IV PYXIS DRIP KIT = 50 MG X 2 VIALS ONE (00:20)
[2022-10-11 00:37] VITALS: BP 207/80
--- NOTE | 2022-10-11 05:15 | Diagnostic Imaging Report ---
INDICATION: Hypertension with shakiness and headache Portable upright AP view of the chest is obtained. COMPARISON: No previous study is available for comparison at this time. FINDINGS: Heart size and pulmonary vasculature are within normal limits, and the lungs are clear, bilaterally. IMPRESSION: Unremarkable chest. Dictated by: Dictated on workstation # [id number]
--- NOTE | 2022-10-11 07:33 | Diagnostic Imaging Report ---
PROCEDURE: CT head wo r/o stroke. TECHNIQUE: Multiple contiguous axial images were obtained through the brain without the use of intravenous contrast. Auto Exposure Controls were utilized during the CT exam to meet ALARA standards for radiation dose reduction. INDICATION: Headache. COMPARISON: 03/06/2022. DISCUSSION: No adverse interval change. White matter hypoattenuation is nonspecific, though not greater than expected for age related chronic small vessel ischemic disease, stable. The ventricles and sulci are normal size and configuration for age. No acute intracranial hemorrhage, mass, midline shift, hydrocephalus. The orbits, sinuses, mastoid air cells, and calvarium are unremarkable. IMPRESSION: 1. Stable senescent changes as described. No acute intracranial abnormality identified. 2. Agree with preliminary report. Dictated by: Dictated on workstation # [id number]
--- NOTE | 2022-10-11 08:00 | Diagnostic Imaging Report ---
PROCEDURE: CT angiography of the head and CT angiography of the neck with and without contrast. TECHNIQUE: Contiguous noncontrast images were obtained from the skull base through the vertex. After intravenous contrast administration, helical CT angiography of the neck was performed. Source data was reformatted into 3D MIP projections. Delayed post contrast acquisition was also obtained. Auto Exposure Controls were utilized during the CT exam to meet ALARA standards for radiation dose reduction. INDICATION: Headache. Nausea. Vision loss. COMPARISON: CT head without contrast 10/10/2022. FINDINGS: Postcontrast head CT continues to demonstrate no CT evidence of large territorial infarction or hemorrhage. No hydrocephalus or extra-axial fluid collections. No abnormal intracranial enhancement. CTA demonstrates a left vertebral artery originating directly from the aortic arch. There is less than 50% narrowing of the bilateral internal carotid artery origins. Less than 50% narrowing of the right vertebral artery origin. The basilar, bilateral vertebral, common carotid, internal carotid, anterior cerebral, middle cerebral and posterior cerebral arteries demonstrate no high-grade narrowing, aneurysm or dissection. No evidence of an arterial venous anomaly. The dural venous sinuses are normally opacified. Moderate to severe spondylotic changes in the cervical spine. Paranasal sinuses and mastoids are clear. Thyromegaly with multiple nodules bilaterally. Lung apices are clear. IMPRESSION: 1. No large vessel occlusion. No high-grade narrowing, aneurysm or dissection involving major arteries in the head and neck. 2. Multinodular thyroid. No significant change from preliminary interpretation. Dictated by: Dictated on workstation # [id number]
== END 2022-10-11 00:37 | disposition short-term general hospital (02) ==
LOC: EDUNIT# 22:24 → ER FS 22:27
DX: I63.89 Other cerebral infarction (principal); I10 Essential (primary) hypertension; R29.704 NIHSS score 4; T46.5X6A Underdosing of other antihypertensive drugs, initial encounter; Z91.A28 Caregiver's intentional underdosing of medication regimen for other reason; Z79.899 Other long term (current) drug therapy
CPT/HCPCS: 36415; 70450; 70496; 70498; 71045; 80053; 82947; 84484; 85025; 85379; 85610; 85652; 85730; 92977; 93005; 93041; 99291; Q9967